=== PATIENT | female | born 1945 | race Asian ===

== ENCOUNTER 2020-12-18 15:49 | Emergency (ER) | payer MEDICAID, MEDICARE ==
[~2020-12-18] VITALS: Ht 157.5 cm; Wt 65.0 kg
--- NOTE | 2020-12-18 15:59 | NUR ---
BIBA FROM HOME FOR C/O LUQ ABD PAIN X2 DAYS. PLACED ON ALL MONITORS, DAUGHTER AT BEDSIDE.
[2020-12-18] MEDS ORDERED: GABA-827 PO (16:06)
[2020-12-18] MEDS ORDERED: ASPI-963 PO (16:06)
[2020-12-18] MEDS ORDERED: ONDANSETRON 2MG/ML, 2ML IVPush ONE (16:30)
[2020-12-18] MEDS ORDERED: SODIUM CHLORIDE 0.9% 1,000ML IVBOLUS ONE (16:30)
[2020-12-18] MEDS ORDERED: SODIUM CHLORIDE FLUSH 10ML SYR IVF ONE (16:30)
[2020-12-18] MEDS ORDERED: OMNIPAQUE 350 MG/ML, 100ML BOTTLE ONE (16:30)
[2020-12-18 16:41] LABS: BASOPHILS % (AUTO) 0 % (0-1); EOSINOPHILS % (AUTO) 0 % (1-7); LYMPHOCYTES % (AUTO) 15 % (22-44); MEAN CORPUSCULAR HEMOGLOBIN 28.5 pg (27.0-34.8); MEAN CORPUSCULAR HGB CONC 32.3 g/dL (32.4-35.8); MEAN PLATELET VOLUME 9.9 fL (7.4-10.4); MONOCYTES % (AUTO) 5 % (2-9); NEUTROPHILS % (AUTO) 80 % (42-75); PLATELET COUNT 179 x10^3/uL (130-400); RED BLOOD COUNT 4.54 x10^6/uL (3.82-5.3); RED CELL DISTRIBUTION WIDTH 13.3 % (9.6-15.2)
[2020-12-18 16:50] LABS: ALBUMIN 3.5 g/dL (3.4-5.0); ANION GAP 8 mmol/L (5-15); CALCIUM 8.9 mg/dL (8.5-10.1); CHLORIDE 107 mmol/L (98-107)
[2020-12-18 16:55] LABS: ALANINE AMINOTRANSFERASE 25 U/L (12-78); ALKALINE PHOSPHATASE 80 U/L (45-117); BILIRUBIN,TOTAL 0.6 mg/dL (0.2-1.0); CREATININE 0.84 mg/dL (0.55-1.02); TOTAL PROTEIN 7.5 g/dL (6.4-8.2)
[2020-12-18] MEDS ORDERED: ONDANSETRON 2MG/ML, 2ML ONE (16:58)
[2020-12-18] MEDS ORDERED: MORPHINE SULFATE 4 MG/ML, 1ML ONE ×2 (16:59→17:48)
[2020-12-18] MEDS: MORPHINE SULFATE 4 MG/ML, 1ML IVPush PRN ×2 (17:15→17:50)
--- NOTE | 2020-12-18 17:18 | NUR ---
PT MEDICATED PER MAR. VSS.
[2020-12-18 18:18] LABS: MICROSCOPIC AUTO
[2020-12-18] MEDS ORDERED: KETOROLAC 30 MG/1 ML ONE (20:39)
[2020-12-18 20:44] VITALS: BP 137/60
[2020-12-18] MEDS ORDERED: KETOROLAC 30 MG/1 ML IVPush ONE (21:00)
--- NOTE | 2020-12-18 21:04 | NUR ---
pt signed medical records release form to get copies of results, okayed per md.
== END 2020-12-18 21:20 | disposition home or self-care (01) ==
LOC: ED 16:19
DX: R10.11 Right upper quadrant pain (principal)
CPT/HCPCS: 36415; 74177; 80053; 81001; 83690; 85025; 87086; 96361; 96374; 96375; 96376; 99285; J1885; J2270; J2405; J7030; Q9967